=== PATIENT | female | born 1980 | race Caucasian/White ===

== ENCOUNTER 2018-05-30 20:18 | Emergency (ER) | payer BC, OTHER ==
[~2018-05-30] VITALS: Ht 172.7 cm; Wt 93.1 kg
[2018-05-30 20:21] VITALS: TEMP 36.8; Ht 172.7 cm; Wt 93.1 kg
[2018-05-30] MEDS ORDERED: SODIUM CHLORIDE 0.9% 1000ML 1,000 ML IV ONE (20:38)
[2018-05-30] MEDS ORDERED: ONDANSETRON INJ 2 MG/ML 2 ML VIAL IV STA (20:38)
[2018-05-30] MEDS ORDERED: SODIUM CHLORIDE 0.9% 1000ML 1,000 ML IV STA (20:38)
--- NOTE | 2018-05-30 20:47 | EMERGENCY ROOM VISIT NOTE ---
History Report prepared by Luan: Oly Hudson Under the Supervision of: Dr. Jhonathan Fiore M.D. First contact with patient: 20:26 Chief Complaint: VOMITING Stated Complaint: MORNING SICKNESS- VOMITING,DEHYDRATION History of Present Illness The patient is a 38 year old, 6-week female who presents to the Emergency Room with complaints of persistent vomiting that started 4 days ago. The patient reports that she visited her OB 3 days ago, who put the patient on Zofran. The patient notes that she has not been able to keep any food or fluids down for the past 2 days. The patient also complains of nausea and headaches secondary to her vomiting. The patient denies any fevers, vaginal discharge or bleeding, chest pain, shortness of breath, and diarrhea. The patient reports that this is her second and that she is scheduled for an ultrasound next week. The patient states that she thinks her blood type is Rh+. 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 Source of History: patient Onset: 4 days ago Position: abdomen Quality: other (vomiting) Timing: other (persistent) Associated Symptoms: + headache, + nausea, No fevers, No chest pain, No SOB , No diarrhea Note: denies: vaginal discharge or bleeding Review of Systems See HPI for pertinent positives & negatives. A total of 10 systems reviewed and were otherwise negative. Past Medical & Surgical Medical Problems: (1) Asthma (2) Gastric ulcer Surgical Problems: (1) Status post breast reduction (2) Stricture of esophagus Old medical records were reviewed. Nurse's notes were reviewed and I agree with. This is her second . She did not have any in vitro fertilization Family History FH: heart disease High blood pressure Social History Smoking Status: Never Smoker Occupation Status: employed Current/Historical Medications Scheduled Amoxicillin (Amoxil), 500 MG PO TID Ondasetron Odt (Zofran Odt), 4 MG SL Q6H Scheduled PRN Ondansetron Hcl (Zofran), 4 MG PO Q6H PRN for Nausea Allergies Coded Allergies: No Known Allergies (Unverified , 05/30/18) Physical Exam Vital Signs Date Time Temp Pulse Resp B/P (MAP) Pulse Ox O2 Delivery O2 Flow Rate FiO2 8/3/18 00:10 67 18 135/85 99 05/30/18 22:36 59 122/78 97 Room Air 05/30/18 20:21 36.8 69 18 128/85 97 Room Air Physical Exam General: Well developed well nourished non ill-appearing middle aged female in no acute distress, breathing comfortably on room air. Normal speech HEENT: Normal cephalic atraumatic. Pupils are equal round and reactive to light. Extraocular movements are intact. Oropharynx is pink with moist mucous membranes. No swelling of the mouth lips or tongue. Neck: Supple with a midline trachea. No meningeal signs or stiffness, no JVD or bruits. No Stridor. Chest: Clear to auscultation bilaterally. No wheezes or rhonchi. No increased work of breathing. Heart: regular rate and rhythm. Abdomen: Soft nondistended without rebound guarding or rigidity. Mild diffuse tenderness. Extremities: No cyanosis clubbing or edema. No calf tenderness or assymetry Spine/Back. Non tender to palpation. No CVA tenderness Skin: Good turgor without rashes. Neurologic exam: Cranial nerves two through 12 are intact. Motor and sensation are intact and symmetrical throughout. Medical Decision & Procedures ER Provider Diagnostic Interpretation: Radiology results as stated below per my review and radiologist interpretation: ULTRASOUND OF THE PELVIS CLINICAL HISTORY: Pelvic pain. COMPARISON STUDY: No priors. TECHNIQUE: Real-time, grayscale, and color flow sonography of the pelvis is performed both transabdominally and endovaginally. Images are reviewed in the transverse and longitudinal planes. FINDINGS: Uterus: The gravid uterus is normal in size and echotexture, measuring 10.8 x 6.1 x 7.9 cm. Gestation: There is a single live uterine gestation with an estimated heart rate of 120 bpm. The crown-rump length measures 0.65 cm, corresponding to an estimated age of 6 weeks 4 days. This is concordant with the mean gestational sac diameter measurement of 2.05 cm, which corresponds to an estimated age of 6 weeks 4 days. A yolk sac is identified. Ovaries: The ovaries are normal in size and morphology. The right ovary measures 4.5 x 3.1 x 2.9 cm and the left ovary measures 3.3 x 1.6 x 2.2 cm. There are bilateral follicles. The largest is on the right and measures up to 2.3 cm. Normal Doppler waveforms are shown within both ovaries. Pelvis: There is trace free fluid in the cul-de-sac. No concerning adnexal lesion is seen. IMPRESSION: 1. There is a single live intrauterine gestation with an estimated age of 6 weeks 4 days by crown-rump length measurement. 2. No adnexal lesion is seen. Electronically signed by: Binu Gan M.D. 05/30/2018 10:19 PM Dictated Date/Time: 05/30/2018 10:16 PM ULTRASOUND OF THE PELVIS CLINICAL HISTORY: Pelvic pain. COMPARISON STUDY: No priors. TECHNIQUE: Real-time, grayscale, and color flow sonography of the pelvis is performed both transabdominally and endovaginally. Images are reviewed in the transverse and longitudinal planes. FINDINGS: Uterus: The gravid uterus is normal in size and echotexture, measuring 10.8 x 6.1 x 7.9 cm. Gestation: There is a single live uterine gestation with an estimated heart rate of 120 bpm. The crown-rump length measures 0.65 cm, corresponding to an estimated age of 6 weeks 4 days. This is concordant with the mean gestational sac diameter measurement of 2.05 cm, which corresponds to an estimated age of 6 weeks 4 days. A yolk sac is identified. Ovaries: The ovaries are normal in size and morphology. The right ovary measures 4.5 x 3.1 x 2.9 cm and the left ovary measures 3.3 x 1.6 x 2.2 cm. There are bilateral follicles. The largest is on the right and measures up to 2.3 cm. Normal Doppler waveforms are shown within both ovaries. Pelvis: There is trace free fluid in the cul-de-sac. No concerning adnexal lesion is seen. IMPRESSION: 1. There is a single live intrauterine gestation with an estimated age of 6 weeks 4 days by crown-rump length measurement. 2. No adnexal lesion is seen. Electronically signed by: Binu Gan M.D. 05/30/2018 10:19 PM Dictated Date/Time: 05/30/2018 10:16 PM Laboratory Results 05/30/18 20:56 Red Blood Count 5.09, Mean Corpuscular Volume 84.3, Mean Corpuscular Hemoglobin 29.1, Mean Corpuscular Hemoglobin Concent 34.5, Mean Platelet Volume 10.4, Neutrophils (%) (Auto) 71.1, Lymphocytes (%) (Auto) 19.7, Monocytes (%) (Auto) 7.3, Eosinophils (%) (Auto) 1.2, Basophils (%) (Auto) 0.2, Neutrophils # (Auto) 9.12, Lymphocytes # (Auto) 2.53, Monocytes # (Auto) 0.94, Eosinophils # (Auto) 0.15, Basophils # (Auto) 0.03 05/30/18 20:56 Test 05/30/18 20:49 05/30/18 20:56 Urine Color DK YELLOW Urine Appearance CLOUDY (CLEAR) Urine pH 5.5 (4.5-7.5) Urine Specific [place] 1.036 (1.000-1.030) Urine Protein 1+ (NEG) Urine Glucose (UA) NEG (NEG) Urine Ketones 3+ (NEG) Urine Occult Blood 1+ (NEG) Urine Nitrite NEG (NEG) Urine Bilirubin NEG (NEG) Urine Urobilinogen NEG (NEG) Urine Leukocyte Esterase SMALL (NEG) Urine WBC (Auto) >30 /hpf (0-5) Urine RBC (Auto) 0-4 /hpf (0-4) Urine Hyaline Casts (Auto) 0 /lpf (0-5) Urine Epithelial Cells (Auto) >30 /lpf (0-5) Urine Bacteria (Auto) 4+ (NEG) Urine Pathogenic Casts /lpf (0) Urine Yeast (Auto) (NONE PRSENT) White Blood Count 12.83 K/uL (4.8-10.8) Red Blood Count 5.09 M/uL (4.2-5.4) Hemoglobin 14.8 g/dL (12.0-16.0) Hematocrit 42.9 % (37-47) Mean Corpuscular Volume 84.3 fL (80-100) Mean Corpuscular Hemoglobin 29.1 pg (25-34) Mean Corpuscular Hemoglobin Concent 34.5 g/dl (32-36) Platelet Count 226 K/uL (130-400) Mean Platelet Volume 10.4 fL (7.4-10.4) Neutrophils (%) (Auto) 71.1 % Lymphocytes (%) (Auto) 19.7 % Monocytes (%) (Auto) 7.3 % Eosinophils (%) (Auto) 1.2 % Basophils (%) (Auto) 0.2 % Neutrophils # (Auto) 9.12 K/uL (1.4-6.5) Lymphocytes # (Auto) 2.53 K/uL (1.2-3.4) Monocytes # (Auto) 0.94 K/uL (0.11-0.59) Eosinophils # (Auto) 0.15 K/uL (0-0.5) Basophils # (Auto) 0.03 K/uL (0-0.2) RDW Standard Deviation 37.9 fL (36.4-46.3) RDW Coefficient of Variation 12.3 % (11.5-14.5) Immature Granulocyte % (Auto) 0.5 % Immature Granulocyte # (Auto) 0.06 K/uL (0.00-0.02) Anion Gap 6.0 mmol/L (3-11) Est Creatinine Clear Calc Drug Dose 110.5 ml/min Estimated GFR () 103.6 Estimated GFR (Non- 89.4 BUN/Creatinine Ratio 10.8 (10-20) Calcium Level 8.8 mg/dl (8.5-10.1) Total Bilirubin 0.7 mg/dl (0.2-1) Direct Bilirubin 0.2 mg/dl (0-0.2) Aspartate Amino Transf (AST/SGOT) 19 U/L (15-37) Alanine Aminotransferase (ALT/SGPT) 47 U/L (12-78) Alkaline Phosphatase 60 U/L (45-117) Total Protein 7.6 gm/dl (6.4-8.2) Albumin 3.9 gm/dl (3.4-5.0) Lipase 159 U/L (73-393) Human Chorionic Gonadotropin, Quant 63076 mIU/mL Laboratory studies as stated above per my review. Medications Administered Medications (Trade) Dose Ordered Sig/Nichole Route Start Time Stop Time Status Last Admin Dose Admin Sodium Chloride 1,000 ml @ 999 mls/hr Q1H1M STAT IV 05/30/18 20:38 05/30/18 21:38 DC 05/30/18 21:06 999 MLS/HR Sodium Chloride 1,000 ml @ 200 mls/hr Q5H ONCE IV 05/30/18 20:38 05/31/18 01:37 05/30/18 21:06 200 MLS/HR Ondansetron HCl (Zofran Inj) 4 mg NOW STAT IV 05/30/18 20:38 05/30/18 20:42 DC 05/30/18 21:06 4 MG Amoxicillin (Amoxil 250MG Home Pack) 1 homepack UD ONCE PO 05/31/18 00:00 05/31/18 00:01 DC 05/31/18 00:10 1 HOMEPACK Ondansetron HCl (ZOFRAN ODT 4MG Home Pack) 1 homepack UD ONCE PO 05/31/18 00:00 05/31/18 00:01 DC 05/31/18 00:10 1 HOMEPACK ED Course 2026: Past medical records reviewed. The patient was evaluated in room A2, and a complete history and physical examination were performed. 2037: Ordered Zofran 4 mg IV, Sodium Chloride 1000 ml @ 200 mls/hr IV, Sodium Chloride 1000 ml @ 999 mls/hr IV. 0: I reevaluated the patient and updated her on her results. The patient states that she is doing okay. The patient is going for her ultrasound now. 2340: Discussed the patient's case with Dr. Victor Hugo BROWN, [facility] and he agrees with the treatment plan. Upon reevaluation, the patient is stable. I discussed the results and treatment plan with her. She verbalized agreement of the treatment plan. The patient was discharged home. 0000: Ordered Ondansetron HCl 1 homepack PO, Amoxicillin 1 homepack PO. Medical Decision Differentials include, but are not limited to; dehydration, morning sickness, complication, UTI, ectopic . This patient comes in as described above. she is has had vomiting for about a week. she had the same type of thing with her first 6 years ago but this is worse. No significant abdominal pain with just some cramping at times. Abdomen is minimally tender in the lower abdomen .she denies dysuria or hematuria or trauma. IV access established and she was hydrated with IV normal saline. While she was in the ER she was given at least 2 L IV normal saline. She was given Zofran 4 mg IV and she seems to be doing better. Her abdomen is only minimally tender. I did a ultrasound and there is no evidence of ectopic there is a 6 week IUP. Her white count minimally elevated. She is not anemic. She has no electrolyte or metabolic abnormalities. She has nothing to assess liver, gallbladder, or pancreas disease. Her urinalysis does suggest a possible UTI although there are greater than 30 epithelial cells. Cultures pending. I will treat her with amoxicillin after discussing it with her. I discussed this also with Dr. Gay and they can follow-up with her in the office, she does have appointment on Sunday. At this point, I think it is related her . I did identify any evidence to suggest acute appendicitis or other acute surgical process. She does not clinically have pyelonephritis. She was given Zofran and encouraged to drink plenty of fluids return to the ER if: increasing pain, worsening of symptoms, fever or chills, any new problems or concerns. She is happy the plan and discharged to home. Medication Reconcilliation Current Medication List: was personally reviewed by me Blood Pressure Screening Patient's blood pressure: Normal blood pressure Blood pressure disposition: Did not require urgent referral Consults Time Called: [phone] Consulting Physician: Dr. Gay - STEPHANIE, [facility] Returned Call: [phone] Discussed the patient's case with Dr. Gay and he agrees with the treatment plan. Impression Primary Impression: Hyperemesis gravidarum Additional Impressions: Urinary tract infection Scribe Attestation The scribe's documentation has been prepared under my direction and personally reviewed by me in its entirety. I confirm that the note above accurately reflects all work, treatment, procedures, and medical decision making performed by me. Departure Information Dispostion Home / Self-Care Prescriptions Ondasetron Odt (ZOFRAN ODT) 4 Mg Tab 4 MG SL Q6H for Nausea, #14 TAB Prov: Jhonathan Fiore M.D. 05/30/18 Amoxicillin (AMOXIL) 500 Mg Cap 500 MG PO TID, #21 CAP Prov: Jhonathan Fiore M.D. 05/30/18 Referrals No Doctor, Assigned (PCP) Forms HOME CARE DOCUMENTATION FORM, IMPORTANT VISIT INFORMATION Patient Instructions My [facility] Additional Instructions Rest. Drink plenty of fluids. Use Zofran 4 mg every 6 hours if needed for nausea or vomiting. May also try martín capsules Use amoxicillin 500 mg 3 times a day for 7 daysantibiotic Return if: Worsening symptoms, vaginal bleeding, not tolerating fluids, any new problems or concerns. Follow-up with [facility] [facility] either tomorrow on Sunday for recheck or return to ER any point if symptoms worsen Problem Qualifiers
[2018-05-30 21:15] LABS: BASO % 0.2 %; BASO ABS # 0.03 K/uL (0-0.2); EOS % 1.2 %; EOS ABS # 0.15 K/uL (0-0.5); HEMATOCRIT 42.9 % (37-47); HEMOGLOBIN 14.8 g/dL (12.0-16.0); IG# 0.06 K/uL (0.00-0.02); LYMPH % 19.7 %; LYMPH ABS # 2.53 K/uL (1.2-3.4); MEAN CELL VOLUME 84.3 fL (80-100); MEAN CORPUSCULAR HEMOGLOBIN 29.1 pg (25-34); MEAN CORPUSCULAR HGB CONC 34.5 g/dl (32-36); MEAN PLATELET VOLUME 10.4 fL (7.4-10.4); MONO % 7.3 %; MONO ABS # 0.94 K/uL (0.11-0.59); NEUT % 71.1 %; NEUT ABS # 9.12 K/uL (1.4-6.5); PLATELET COUNT 226 K/uL (130-400); RED CELL DISTRIBUTION WIDTH CV 12.3 % (11.5-14.5); RED CELL DISTRIBUTION WIDTH SD 37.9 fL (36.4-46.3); WHITE BLOOD COUNT 12.83 K/uL (4.8-10.8)
[2018-05-30 21:40] LABS: ALBUMIN 3.9 gm/dl (3.4-5.0); CALCIUM 8.8 mg/dl (8.5-10.1); CREATININE 0.84 mg/dl (0.60-1.20); POTASSIUM 3.5 mmol/L (3.5-5.1); TOTAL PROTEIN 7.6 gm/dl (6.4-8.2)
--- NOTE | 2018-05-30 22:21 | DIAGNOSTIC IMAGING REPORT ---
ULTRASOUND OF THE PELVIS CLINICAL HISTORY: Pelvic pain. COMPARISON STUDY: No priors. TECHNIQUE: Real-time, grayscale, and color flow sonography of the pelvis is performed both transabdominally and endovaginally. Images are reviewed in the transverse and longitudinal planes. FINDINGS: Uterus: The gravid uterus is normal in size and echotexture, measuring 10.8 x 6.1 x 7.9 cm. Gestation: There is a single live uterine gestation with an estimated heart rate of 120 bpm. The crown-rump length measures 0.65 cm, corresponding to an estimated age of 6 weeks 4 days. This is concordant with the mean gestational sac diameter measurement of 2.05 cm, which corresponds to an estimated age of 6 weeks 4 days. A yolk sac is identified. Ovaries: The ovaries are normal in size and morphology. The right ovary measures 4.5 x 3.1 x 2.9 cm and the left ovary measures 3.3 x 1.6 x 2.2 cm. There are bilateral follicles. The largest is on the right and measures up to 2.3 cm. Normal Doppler waveforms are shown within both ovaries. Pelvis: There is trace free fluid in the cul-de-sac. No concerning adnexal lesion is seen. IMPRESSION: 1. There is a single live intrauterine gestation with an estimated age of 6 weeks 4 days by crown-rump length measurement. 2. No adnexal lesion is seen. Electronically signed by: Binu Gan M.D. 05/30/2018 10:19 PM Dictated Date/Time: 05/30/2018 10:16 PM
[2018-05-30] MEDS ORDERED: ONDA4TAB46 PO (22:46)
[2018-05-30] MEDS ORDERED: AMOX500C3 PO (23:45)
[2018-05-30] MEDS ORDERED: ONDA4TAB10 SL (23:47)
[2018-05-31] MEDS ORDERED: AMOXICILLIN HOME PACK 250 MG/TAB PO ONE
[2018-05-31] MEDS ORDERED: ONDANSETRON HOME PACK 4MG OD TAB PO ONE
[2018-05-31 00:10] VITALS: BP 135/85; PULSE 67; O2SAT 99
== END 2018-05-31 00:10 | disposition home or self-care (01) ==
LOC: C.EDB 20:20 → C.EDA 05-31 00:10
DX: O21.0 Mild hyperemesis gravidarum (principal); O23.41 Unspecified infection of urinary tract in pregnancy, first trimester; O99.511 Diseases of the respiratory system complicating pregnancy, first trimester; R51 Headache; J45.909 Unspecified asthma, uncomplicated; Z87.19 Personal history of other diseases of the digestive system; Z3A.01 Less than 8 weeks gestation of pregnancy

== ENCOUNTER → 2018-06-03 | Outpatient (CLI) | payer OTHER ==
[~2018-06-03] MED LIST: AMOX500C3 PO; ONDA4TAB10 SL; ONDA4TAB46 PO
== END | disposition home or self-care (01) ==
LOC: C.LABSPEC 17:39
PROVIDERS: ATTEND Obstetrics & Gynecology
DX: Z34.81 Encounter for supervision of other normal pregnancy, first trimester (principal)

== ENCOUNTER → 2018-06-11 | Outpatient (CLI) | payer OTHER ==
[~2018-06-11] MED LIST changes: -AMOX500C3 PO
[2018-06-11 12:16] LABS: BASO % 0.3 %; BASO ABS # 0.04 K/uL (0-0.2); EOS % 1.6 %; HEMATOCRIT 43.3 % (37-47); HEMOGLOBIN 14.7 g/dL (12.0-16.0); IG# 0.06 K/uL (0.00-0.02); LYMPH % 20.1 %; LYMPH ABS # 2.48 K/uL (1.2-3.4); MEAN CELL VOLUME 85.6 fL (80-100); MEAN CORPUSCULAR HEMOGLOBIN 29.1 pg (25-34); MEAN CORPUSCULAR HGB CONC 33.9 g/dl (32-36); MEAN PLATELET VOLUME 11.2 fL (7.4-10.4); MONO % 5.3 %; MONO ABS # 0.65 K/uL (0.11-0.59); NEUT % 72.2 %; PLATELET COUNT 235 K/uL (130-400); RED CELL DISTRIBUTION WIDTH CV 12.7 % (11.5-14.5); RED CELL DISTRIBUTION WIDTH SD 39.5 fL (36.4-46.3); WHITE BLOOD COUNT 12.33 K/uL (4.8-10.8)
== END | disposition home or self-care (01) ==
LOC: C.LAB1850 11:26
PROVIDERS: ATTEND Obstetrics & Gynecology
DX: Z34.81 Encounter for supervision of other normal pregnancy, first trimester (principal)

== ENCOUNTER 2019-01-07 05:21 | Inpatient (IN) ==
[2019-01-07] MEDS ORDERED: PENICILLIN G POTASSIUM 6 MU in DEXTROSE 5% 250 ML IV STA (06:27)
[2019-01-07] MEDS ORDERED: LACTATED RINGER'S 1,000 ML IV PRN ×2 (06:27→07:38)
[2019-01-07] MEDS ORDERED: PENICILLIN G POTASSIUM 3 MU in DEXTROSE 5% 100 ML IV PRN (06:27)
[2019-01-07] MEDS ORDERED: LACTATED RINGER'S 1,000 ML IV SCH (06:30)
--- NOTE | 2019-01-07 06:35 | History & Physical Report ---
Date of Service January 07, 2019 Assessment & Plan (1) Normal labor: IUP at 38+ weeks in labor will start PCN G for GBS carrier status patient requesting epidural analgesia anticipate vaginal Present on Admission?: Yes History of Present Illness Primary Care Provider: NO PCP Patient is a 38 yo female who presents at 38+ weeks with regular contractions every 3-4 minutes. no SPROM . complicated with AMA & GBS carrier status. Allergies Allergy/AdvReac Type Severity Reaction Status Date / Time No Known Allergies Allergy Verified 01/07/19 05:46 Home Medications Home Medications Medication Instructions Recorded Confirmed Type guaifenesin [Mucinex] 1 tab PO BID PRN 01/07/19 01/07/19 History vit-iron fum-folic ac 1 tab PO DAILY 01/07/19 01/07/19 History [ Vitamin] ranitidine HCl [Zantac Maximum 1 tab PO BID 01/07/19 01/07/19 History Strength] Patient History Social History Preferred Language: Greenlandic Communication Ability: Effective Beliefs That Will Affect Care: None marital status: Current Living Situation: Spouse and Family Other Information That Helps Us Care for You: No Feels Safe at Home: Yes Safety Concerns: Feels Safe At This Time Smoking Status: Never smoker Hx Alcohol Use: No Hx Substance Use: No Review of Systems All systems reviewed & are unremarkable except as noted in HPI & below Physical Exam Vital Signs (Past 24 Hours): Last Vital Signs Temp 36.5 C 01/07/19 05:54 Pulse 89 01/07/19 05:59 Resp 20 01/07/19 05:54 BP 142/94 H 01/07/19 05:59 Constitutional: WD/WN, vitals as above Respiratory: normal respiratory effort, lungs clear to auscultation Cardiovascular: RRR, no murmur, no edema Genitourinary: OB Exam Abdomen: + vertex and + regular contractions Manual OB Exam: + cervical dilation 6 cm, + cervical effacement 100% and + station 0 OB Exam Monitor Tracing: + external FHT monitor used, + external uterine monitor used, + category I and + normal FHT variability
[2019-01-07 07:15] LABS: Hematocrit (blood only) 37.9 % (37-47); Hemoglobin 12.3 g/dL (12.0-16.0); Mean Corpuscular Volume 76.3 fL (80-100); Mean Platelet Volume 10.5 fL (7.4-10.4); Platelet Count 171 K/uL (130-400); RDW Coefficient of Variation 14.7 % (11.5-14.5); RDW Standard Deviation 41.1 fL (36.4-46.3); Red Blood Count 4.97 M/uL (4.2-5.4); White Blood Count 13.25 K/uL (4.8-10.8)
--- NOTE | 2019-01-07 07:15 | Anesthesiology Consultation ---
Date of Service January 07, 2019 Assessment & Plan (1) Encounter for pre-operative examination: Chart Review Chart Review: Acceptable Risk for Labor Epidural Consults Requested none ASA ASA2 Proposed Anesthesia Anesthesia Type: Labor Epidural Risk / Benefits Reviewed With: PT / POA / Parent / Guardian, Accepts Plan and Informed Consent Obtained History Height/Weight Height: 5 ft 8 in Weight: 103.419 kg Allergies Allergy/AdvReac Type Severity Reaction Status Date / Time No Known Allergies Allergy Verified 01/07/19 05:46 Medications Home Medications Medication Instructions Recorded Confirmed Last Taken guaifenesin [Mucinex] 1 tab PO BID PRN 01/07/19 01/07/19 01/06/19 07:00 vit-iron fum-folic ac 1 tab PO DAILY 01/07/19 01/07/19 01/06/19 07:00 [ Vitamin] ranitidine HCl [Zantac Maximum 1 tab PO BID 01/07/19 01/07/19 01/06/19 19:00 Strength] Active Medications Generic Name Dose Route Start Last Admin Trade Name Freq PRN Reason Stop Dose Admin Lactated Ringer's 1,000 mls @ 999 mls/hr 01/07/19 06:27 01/07/19 06:40 Lr IV 02/06/19 06:26 999 mls/hr .Q1H1M PRN Administration (Pre-Anesthesia) Penicillin G Potassium 6 mu/ 262 mls @ 262 mls/hr 01/07/19 06:27 01/07/19 07:06 Dextrose IV 01/07/19 07:26 262 mls/hr NOW STA Administration Past Anesthesia History No Hx of Anesthesia Complications and No Family Hx of Anesthesia Complications History of PONV No Motion Sickness Screening History of Motion Sickness: No Social History Smoking Status: Never smoker Hx Alcohol Use: No Hx Substance Use: No substance use type: does not use Exercise / Class Metabolic Activity II 4-5 Yardwork/Stairs/Walk up hill Physical Exam Vital Signs Last Vital Signs Temp 97.7 F 01/07/19 05:54 Pulse 81 01/07/19 07:12 Resp 20 01/07/19 05:54 BP 142/94 H 01/07/19 05:59 Pulse Ox 97 01/07/19 07:12 ENMT Mouth: no dentition abnormality Thyromental Distance: > or= 3.5 Finger Breadths Mallampati Class: II Neck normal visual inspection Respiratory normal respiratory effort Auscultation: lungs clear to auscultation bilaterally Cardiovascular Rate/Rhythm: regular rate and regular rhythm
[2019-01-07] MEDS ORDERED: fentaNYL citrate 100 MCG/2 ML VIAL ONE (07:16)
[2019-01-07] MEDS ORDERED: ePHEDrine sulfate 50 MG/ML AMP ONE (07:16)
[2019-01-07] MEDS ORDERED: BUPIVACAINE 0.25% 30 ML VIAL ONE (07:16)
[2019-01-07] MEDS ORDERED: fentaNYL 2MCG/ML ROPIV 1.25MG/ML 100 ML BAG EPI ONE (07:17)
[2019-01-07 07:26] LABS: Mean Corpuscular Hgb Conc 32.5 g/dL (32-36)
[2019-01-07] MEDS ORDERED: ePHEDrine sulfate 50 MG/ML AMP IV PRN (07:38)
[2019-01-07] MEDS ORDERED: DiphenhydrAMINE HCL 50 MG/ML VIAL IV PRN (07:38)
[2019-01-07] MEDS ORDERED: NALOXONE HCL 1 MG in SODIUM CHLORIDE 0.9% 1000ML 1,000 ML IV PRN (07:38)
[2019-01-07] MEDS ORDERED: fentaNYL 2MCG/ML ROPIV 1.25MG/ML 100 ML BAG EPI PRN (07:38)
[2019-01-07] MEDS ORDERED: NALBUPHINE HCL INJ 10 MG/ML AMP IV PRN (07:38)
[2019-01-07] MEDS ORDERED: NALOXONE HCL 0.4 MG/1 ML VIAL/CARP IV PRN (07:38)
[2019-01-07] MEDS ORDERED: ONDANSETRON INJ 2 MG/ML 2 ML VIAL IV PRN (07:38)
[2019-01-07] MEDS ORDERED: CALCIUM CARBONATE 500 MG CHEWABLE TAB PO PRN (13:57)
[2019-01-07] MEDS ORDERED: CALCIUM CARBONATE 500 MG CHEWABLE TAB ONE (13:58)
[2019-01-07] MEDS ORDERED: SUPERCREAM 0.870% 15 GM JAR EXT PRN (16:08)
[2019-01-07] MEDS ORDERED: OXYCODONE/ACETAMINOPHEN 5mg/325mg TAB PO PRN (16:08)
[2019-01-07] MEDS ORDERED: BENZOCAINE 20% AER SPR 82.5 GM CAN EXT PRN (16:08)
[2019-01-07] MEDS ORDERED: BISACODYL 10 MG SUPP PR PRN (16:08)
[2019-01-07] MEDS ORDERED: ACETAMINOPHEN 325 MG TAB PO PRN (16:08)
[2019-01-07] MEDS ORDERED: DIPHTHERIA/TETANUS/PERTUSSIS 0.5 ML SYR/VIAL IM ONE (16:08)
[2019-01-07] MEDS ORDERED: HYDROCORTISONE ACETATE 25 MG SUPP PR PRN (16:08)
[2019-01-07] MEDS ORDERED: OXYTOCIN 30 UNITS/500 ML BAG IV PRN (16:08)
--- NOTE | 2019-01-07 16:10 | Procedure Note ---
Vaginal Delivery Summary Date of Service January 07, 2019 Spontaneous vaginal delivery of live vigorous infant. Baby delivered in occiput out anterior position mother had epidural there was meconium present mouth and then nares were suctioned after delivery of help head. Gentle traction no excessive force live vigorous infant there was a loose nuchal cord that had to be passed up over the head prior to this. Cord blood obtained cord collection for blood banking obtained placenta removed small first-degree tear repaired with 3-0 Vicryl sponge and instrument counts correct oxytocin been started after delivery of the placenta and uterine tone improved estimated blood loss 150 mL
[2019-01-07] MEDS: OXYTOCIN 30 UNITS/500 ML BAG IV PRN ×2 (16:13→17:21)
--- NOTE | 2019-01-07 16:40 | Anesthesia Procedure Note ---
Date of Service January 07, 2019 Anesthesia Post Epidural Note Vital Signs Vital Signs: Temp Pulse Resp BP Pulse Ox 36.8 C 87 18 152/79 H 97 01/07/19 13:20 01/07/19 16:19 01/07/19 13:52 01/07/19 16:19 01/07/19 16:05 Notes Mental Status: alert / awake / arousable and participated in evaluation Nausea / Vomiting: adequately controlled Pain: adequately controlled Airway Patency, RR, SpO2: stable & adequate BP & HR: stable & adequate Hydration State: stable & adequate Neuraxial Anesthesia: sensory block is resolving Anesthetic Complications: no major complications apparent Epidural: Removed without complications and With tip intact
--- NOTE | 2019-01-07 17:47 | Obstetrical Progress Note ---
Date of Service January 07, 2019 increased PP bleeding. Pitocin increased and manual exam of uterus I was able to express several clots. Bleeding improved after Physical Exam Vital Signs (Past 24 Hours): Last Vital Signs Temp 36.7 C 01/07/19 16:50 Pulse 88 01/07/19 17:34 Resp 18 01/07/19 17:05 BP 150/93 H 01/07/19 17:34 Pulse Ox 97 01/07/19 16:05
[2019-01-07] MEDS: DOCUSATE SODIUM 100 MG CAP PO SCH (21:17)
[2019-01-07] MEDS ORDERED: SODIUM CHLORIDE 0.65% NA SOLN 45 ML (OCEAN) ONE (21:21)
[2019-01-08 06:49] LABS: Hematocrit (blood only) 34.9 % (37-47); Hemoglobin 11.1 g/dL (12.0-16.0); Mean Corpuscular Hgb Conc 31.8 g/dL (32-36); Mean Platelet Volume 10.5 fL (7.4-10.4); Platelet Count 151 K/uL (130-400); RDW Coefficient of Variation 14.8 % (11.5-14.5); RDW Standard Deviation 41.3 fL (36.4-46.3); Red Blood Count 4.59 M/uL (4.2-5.4); White Blood Count 18.53 K/uL (4.8-10.8)
--- NOTE | 2019-01-08 07:21 | Obstetrical Progress Note ---
Date of Service <Jona White - Last Filed: 01/08/19 07:21> January 08, 2019 Assessment & Plan <Jona White - Last Filed: 01/08/19 07:21> (1) (spontaneous vaginal delivery): -vital signs reviewed and WNL -last Hgb 11.1 -Blood type: O+, GBS+, Rubella Immune -pt doing well clinically -encourage ambulation, monitor and control pain with motrin tylenol, cont regular diet, monitor lochia -cont bottle feeding Subjective <Jona White DO - Last Filed: 01/08/19 07:21> 38 y/o PPD1 found in bed this morning in NAD. Reports no acute overnight events. Pt states that she has no pain other than appropriate soreness. Tolerating PO intake without N/V. Able to ambulate without issue. She is bottle feeding without issue. No issues with voiding, no BM yet. No other acute concerns or complaints. Review of Systems All systems reviewed & are unremarkable except as noted in HPI & below Physical Exam <Jona White - Last Filed: 01/08/19 07:21> Vital Signs (Past 24 Hours) Last Vital Signs Temp 36.3 C L 01/08/19 03:40 Pulse 72 01/08/19 03:40 Resp 18 01/08/19 03:40 BP 120/77 01/08/19 03:40 Pulse Ox 98 01/07/19 23:45 Constitutional WD/WN, vitals as above Eyes PERRL, conjunctivae normal, anicteric sclerae ENMT external ear and nose normal, oropharynx normal Respiratory normal respiratory effort, lungs clear to auscultation Cardiovascular RRR, no murmur, no edema Gastrointestinal (Abdomen) mild abd tenderness Skin no rashes, warm and dry Psychiatric A+Ox3, euthymic affect Lymphatic no calf tenderness, no LE swelling Results & Data <Jona White DO - Last Filed: 01/08/19 07:21> Laboratory Results Laboratory Results - last 24 hr 01/07/19 01/08/19 06:44 06:35 WBC 18.53 H RBC 4.59 Hgb 11.1 L Hct 34.9 L MCV 76.0 L MCH 24.2 L MCHC 32.5 31.8 L RDW Std Deviation 41.3 RDW Coeff of William 14.8 H Plt Count 151 MPV 10.5 H Medications Administered Current Inpatient Medications Acetaminophen (Tylenol) 650 mg PO Q6H PRN PRN Reason: Pain/RODRIGUEZ/Fever Stop: 02/06/19 16:07 Benzocaine (Dermoplast Pain Relieving [place]) 1 appln EXT PRN PRN PRN Reason: Perineal Discomfort Stop: 02/06/19 16:07 Last Admin: 01/07/19 21:25 Dose: 82.5 appln Documented by: Bisacodyl (Dulcolax) 5 mg PO 2000 [facility] Stop: 01/08/19 20:01 Bisacodyl (Dulcolax) 10 mg [place] DAILY PRN PRN Reason: No BM on 2nd post- day Stop: 02/06/19 16:07 Calcium Carbonate (Tums) 1,000 mg PO Q4 PRN PRN Reason: Indigestion Stop: 02/06/19 13:56 Cocaine HCl (Supercream 0.870%) 1 gm EXT BID PRN PRN Reason: Hemorrhoidal Inflammation Stop: 01/21/19 16:07 Diphenhydramine HCl (Benadryl) 25 mg IV Q6H PRN PRN Reason: Itching Stop: 01/08/19 07:37 Docusate Sodium (Colace) 100 mg PO BID [facility] Stop: 02/06/19 20:59 Last Admin: 01/07/19 21:17 Dose: 100 mg Documented by: Ephedrine Sulfate (Ephedrine Sulfate) 10 mg IV Q5M PRN PRN Reason: Hypotension Stop: 01/08/19 07:37 Hydrocortisone (Anusol Hc) 25 mg [place] BID PRN PRN Reason: Hemorrhoidal Inflammation Stop: 02/06/19 16:07 Lactated Ringer's (Lr) 1,000 mls @ 999 mls/hr IV .Q1H1M PRN PRN Reason: (Pre-Anesthesia) Stop: 02/06/19 06:26 Last Infusion: 01/07/19 07:06 Dose: 125 mls/hr Documented by: Lactated Ringer's (Lr) 1,000 mls @ 125 mls/hr IV .Q8H [facility] Stop: 01/09/19 06:29 Last Admin: 01/07/19 07:35 Dose: 125 mls/hr Documented by: Oxytocin (Pitocin) 30 units in 500 mls @ 999.833 mls/hr IV .Q30M PRN; Protocol PRN Reason: Bleeding Control Stop: 02/06/19 06:26 Last Admin: 01/07/19 17:21 Dose: 59.94 units/hr, 999 mls/hr Documented by: Penicillin G Potassium 3 mu/ (Dextrose) 106 mls @ 100 mls/hr IV Q4H PRN PRN Reason: Give until delivery Stop: 01/17/19 06:26 Last Infusion: 01/07/19 11:56 Dose: Infused Documented by: Naloxone HCl 1 mg/ Sodium (Chloride) 1,002.5 mls @ 50 mls/hr IV .Q20H3M PRN PRN Reason: itching or nausea Stop: 01/08/19 07:37 Lactated Ringer's (Lr) 1,000 mls @ 999 mls/hr IV .Q1H1M PRN PRN Reason: Hypotension Stop: 01/08/19 07:37 Oxytocin (Pitocin) 30 units in 500 mls @ 333.333 mls/hr IV .Q1H30M PRN; Protocol PRN Reason: BLEEDING CONTROL Stop: 02/06/19 16:07 Ibuprofen (Motrin) 600 mg PO Q4H PRN PRN Reason: Pain/RODRIGUEZ/Cramping/Fever Stop: 02/06/19 16:07 Nalbuphine HCl (Nubain) 5 mg IV Q10M PRN PRN Reason: itching or nausea Stop: 01/08/19 07:37 Naloxone HCl (Narcan) 0.1 mg IV UD PRN PRN Reason: respiratory depression Stop: 01/08/19 07:37 Ondansetron HCl (Zofran) 4 mg IV Q6H PRN PRN Reason: Nausea And Vomiting Stop: 01/08/19 07:37 Oxycodone/Acetaminophen (Percocet 5mg/325mg) 1 tab PO Q4H PRN PRN Reason: Pain not relieved by... Stop: 01/21/19 16:07 Prenat Multivit/Molder Offbearer/Iron/Folic Ac ( Vitamin) 1 tab PO QAM [facility] Stop: 02/07/19 08:59 Ropivacaine (Epidural (L&D)) 100 ml EPI PRN PRN; Protocol PRN Reason: Pain R/T Labor Stop: 01/08/19 07:37 <Fela Gay MD, FACOG - Last Filed: 01/08/19 07:50> Co-Signing Physician Notes Resident Physician Supervision Note: I interviewed and examined the patient. Discussed with Dr. Carrasco and agree with findings and plan as documented in the note. Any exceptions or clarifications are listed here: [None] Documented By: Fela Gay MD, FACOG Resident Activity Tracking <Jona White DO - Last Filed: 01/08/19 07:21> Resident Involvement: Resident Care Provided Care Provided: OB Delivery
[2019-01-08] MEDS: DOCUSATE SODIUM 100 MG CAP PO SCH ×2 (08:51→20:31)
[2019-01-08] MEDS: IBUPROFEN 600 MG TAB PO PRN ×3 (08:51→23:15)
[2019-01-08] MEDS: PRENATAL VITAMIN 1 TAB PO SCH (08:51)
[2019-01-08] MEDS ORDERED: BISACODYL 5 MG TABEC PO SCH (20:00)
--- NOTE | 2019-01-09 06:44 | Obstetrical Progress Note ---
Date of Service <Jona White - Last Filed: 01/09/19 06:44> January 09, 2019 Assessment & Plan <Jona White DO - Last Filed: 01/09/19 06:44> (1) (spontaneous vaginal delivery): -vital signs reviewed and WNL -last Hgb 11.1 -Blood type: O+, GBS+, Rubella Immune -pt doing well clinically -encourage ambulation, monitor and control pain with motrin tylenol, cont regular diet, monitor lochia -plan for d/c today Subjective <Jona White - Last Filed: 01/09/19 06:44> 38 y/o PPD2 found in bed this morning in NAD. Reports no acute overnight events. Pt states that she has no pain other than appropriate soreness. Tolerating PO intake without N/V. Able to ambulate without issue. She is bottle feeding without issue. No issues with voiding, no BM yet. No other acute concerns or complaints. Pt ok with plan for d/c today. Review of Systems All systems reviewed & are unremarkable except as noted in HPI & below Physical Exam <Jona White - Last Filed: 01/09/19 06:44> Vital Signs (Past 24 Hours) Last Vital Signs Temp 36.2 C L 01/08/19 23:15 Pulse 63 01/08/19 23:15 Resp 18 01/08/19 23:15 BP 131/79 01/08/19 23:15 Pulse Ox 98 01/08/19 15:26 Constitutional WD/WN, vitals as above Eyes PERRL, conjunctivae normal, anicteric sclerae ENMT external ear and nose normal, oropharynx normal Respiratory normal respiratory effort, lungs clear to auscultation Cardiovascular RRR, no murmur, no edema Gastrointestinal (Abdomen) mild abd tenderness fundus at U Skin no rashes, warm and dry Psychiatric A+Ox3, euthymic affect Lymphatic no LE swelling, no calf tenderness Results & Data <Jona White - Last Filed: 01/09/19 06:44> Laboratory Results Laboratory Results - last 24 hr 01/08/19 06:35 WBC 18.53 H RBC 4.59 Hgb 11.1 L Hct 34.9 L MCV 76.0 L MCH 24.2 L MCHC 31.8 L RDW Std Deviation 41.3 RDW Coeff of William 14.8 H Plt Count 151 MPV 10.5 H Medications Administered Current Inpatient Medications Acetaminophen (Tylenol) 650 mg PO Q6H PRN PRN Reason: Pain/RODRIGUEZ/Fever Stop: 02/06/19 16:07 Benzocaine (Dermoplast Pain Relieving [place]) 1 appln EXT PRN PRN PRN Reason: Perineal Discomfort Stop: 02/06/19 16:07 Last Admin: 01/07/19 21:25 Dose: 82.5 appln Documented by: Bisacodyl (Dulcolax) 10 mg [place] DAILY PRN PRN Reason: No BM on 2nd post- day Stop: 02/06/19 16:07 Calcium Carbonate (Tums) 1,000 mg PO Q4 PRN PRN Reason: Indigestion Stop: 02/06/19 13:56 Last Admin: 01/08/19 08:50 Dose: 1,000 mg Documented by: Cocaine HCl (Supercream 0.870%) 1 gm EXT BID PRN PRN Reason: Hemorrhoidal Inflammation Stop: 01/21/19 16:07 Last Admin: 01/09/19 04:27 Dose: 1 gm Documented by: Docusate Sodium (Colace) 100 mg PO BID [facility] Stop: 02/06/19 20:59 Last Admin: 01/08/19 20:31 Dose: 100 mg Documented by: Hydrocortisone (Anusol Hc) 25 mg [place] BID PRN PRN Reason: Hemorrhoidal Inflammation Stop: 02/06/19 16:07 Lactated Ringer's (Lr) 1,000 mls @ 999 mls/hr IV .Q1H1M PRN PRN Reason: (Pre-Anesthesia) Stop: 02/06/19 06:26 Last Infusion: 01/07/19 07:06 Dose: 125 mls/hr Documented by: Oxytocin (Pitocin) 30 units in 500 mls @ 999.833 mls/hr IV .Q30M PRN; Protocol PRN Reason: Bleeding Control Stop: 02/06/19 06:26 Last Admin: 01/07/19 17:21 Dose: 59.94 units/hr, 999 mls/hr Documented by: Penicillin G Potassium 3 mu/ (Dextrose) 106 mls @ 100 mls/hr IV Q4H PRN PRN Reason: Give until delivery Stop: 01/17/19 06:26 Last Infusion: 01/07/19 11:56 Dose: Infused Documented by: Oxytocin (Pitocin) 30 units in 500 mls @ 333.333 mls/hr IV .Q1H30M PRN; Protocol PRN Reason: BLEEDING CONTROL Stop: 02/06/19 16:07 Ibuprofen (Motrin) 600 mg PO Q4H PRN PRN Reason: Pain/RODRIGUEZ/Cramping/Fever Stop: 02/06/19 16:07 Last Admin: 01/08/19 23:15 Dose: 600 mg Documented by: Oxycodone/Acetaminophen (Percocet 5mg/325mg) 1 tab PO Q4H PRN PRN Reason: Pain not relieved by... Stop: 01/21/19 16:07 Prenat Multivit/Appeals Analyst/Iron/Folic Ac ( Vitamin) 1 tab PO QAM [facility] Stop: 02/07/19 08:59 Last Admin: 01/08/19 08:51 Dose: 1 tab Documented by: <Rosa Braga MD, FACOG - Last Filed: 01/09/19 07:32> Co-Signing Physician Notes Resident Physician Supervision Note: I interviewed and examined the patient. Discussed with Dr. White and agree with findings and plan as documented in the note. Any exceptions or clarifications are listed here: Doing well, plan d/c. Instructions given. Documented By: Rosa Braga MD, FACOG Resident Activity Tracking <Jona White DO - Last Filed: 01/09/19 06:44> Resident Involvement: Resident Care Provided Care Provided: OB Delivery
[2019-01-09 07:24] LABS: Hematocrit (blood only) 33.3 % (37-47); Hemoglobin 10.6 g/dL (12.0-16.0)
[2019-01-09] MEDS: DOCUSATE SODIUM 100 MG CAP PO SCH (08:02)
[2019-01-09] MEDS: PRENATAL VITAMIN 1 TAB PO SCH (08:02)
[2019-01-09] MEDS: IBUPROFEN 600 MG TAB PO PRN ×2 (08:02→13:21)
== END 2019-01-09 16:15 | disposition home or self-care (01) | DRG 807 ==
LOC: OPB 05:21 → 4S1 05:25 → 4N 23:35